=== PATIENT | female | born 1965 | race American Indian/Alaskan Native ===

== ENCOUNTER 2017-02-26 12:22 | Emergency (ER) | payer OTHER ==
[2017-02-26 13:13] LABS: Eosinophils % (Auto) 2.3 % (0.0-4.3); Hematocrit 34.6 % (30.3-42.9); Hemoglobin 10.6 gm/dl (10.1-14.3); Mean Corpuscular HGB Conc 31 % (30-34); Mean Corpuscular Volume 79 fl (79-97); Platelet Count 299 K/mm3 (140-440); Red Blood Count 4.39 M/mm3 (3.65-5.03); Red Cell Distribution Width 17.5 % (13.2-15.2); White Blood Count 9.7 K/mm3 (4.5-11.0)
[2017-02-26 13:19] LABS: Mean Corpuscular Hemoglobin 24 pg (28-32)
[2017-02-26 13:24] LABS: BUN/Creatinine Ratio 18; Blood Urea Nitrogen 11 mg/dL (7-17); Calcium 9.1 mg/dL (8.4-10.2); Carbon Dioxide 21 mmol/L (22-30); Chloride 99.8 mmol/L (98-107); Glucose 111 mg/dL (65-100); Sodium 136 mmol/L (137-145)
[2017-02-26 13:56] LABS: Anion Gap 21 mmol/L; Potassium 5.6 mmol/L (3.6-5.0)
[2017-02-26 14:45] LABS: Bacteria,Urine 1+ /HPF (Negative); Bilirubin,Urine NEG (Negative); Blood,Urine NEG (Negative); Ketones,Urine NEG (Negative); Leukocyte Esterase,Urine NEG (Negative); Mucus,Urine 3+ /HPF; Nitrite,Urine NEG (Negative)
[2017-02-26] MEDS ORDERED: LASIX PO ONE (15:13)
[2017-02-26] MEDS ORDERED: CATAPRES PO ONE (15:13)
--- NOTE | 2017-02-26 15:15 | Emergency Department Report ---
HPI - General Chief Complaint: Dyspnea/Respdistress Time Seen by Provider: 02/26/17 14:48 - HPI HPI: The patient's for 51-year-old female presents for evaluation of dyspnea. The patient has a history of CHF and hypertension. She reports constant mild in severity dyspnea for the past 2 days, exacerbated with lying flat or exertion, improved with rest and sitting forward. The patient denies fever, productive cough, chest pain, syncope, hemoptysis, unilateral leg swelling, oral contraceptive use, recent immobilization, history of DVT or PE, recent cancer. ED Past Medical Hx - Past Medical History Hx Hypertension: Yes Hx Congestive Heart Failure: Yes - Surgical History Additional Surgical History: C sections x 3, ear surgery - Social History Smoking Status: Never Smoker Substance Use Type: None - Medications Home Medications: Home Medications Medication Instructions Recorded Confirmed Last Taken Type Furosemide [Lasix] 20 mg PO QDAY #30 tablet 02/26/17 Unknown Rx Lisinopril [Zestril] 10 mg PO QDAY #30 tablet 02/26/17 Unknown Rx amLODIPine [Norvasc] 10 mg PO DAILY #30 tab 02/26/17 Unknown Rx ED Review of Systems ROS: Stated complaint: SOB Other details as noted in HPI Constitutional: denies: fever ENT: denies: throat or neck pain Respiratory: denies: cough reports shortness of breath Cardiovascular: denies: chest pain Endocrine: denies unexplained weight loss or gain Gastrointestinal: denies: abdominal pain, nausea Genitourinary: denies: dysuria Musculoskeletal: denies: leg swelling Skin: denies: rash Neurological: denies: headache Hematological/Lymphatic: denies: easy bleeding or easy bruising Psych: denies sadness or hopelessness Physical Exam - Physical Exam Vital Signs: Vital Signs 02/26/17 02/26/17 02/26/17 12:38 14:45 14:48 Temperature 98.8 F Pulse Rate 90 92 H Respiratory 20 22 22 Rate Blood Pressure 229/139 Blood Pressure 191/104 [Left] O2 Sat by Pulse 98 98 98 Oximetry Physical Exam: General: well-nourished, well-developed, no acute distress Head: Normocephalic, atraumatic Eyes: normal sclera ENT: Mucous membranes are pink and moist Neck: trachea midline, neck supple, No neck stiffness, no cervical adenopathy Respiratory: Breath sounds equal bilaterally, no wheezing, rales, or rhonchi Cardio: S1 and S2 present, no murmurs, rubs, gallops, capillary refill is brisk Abdomen: Normoactive bowel sounds, soft abdomen, no rigidity, no guarding or rebound tenderness Chest WALL/Back: No tenderness to palpation of the chest wall, no CVA tenderness with percussion Musc: 1+ pitting edema of bilateral lower legs Skin: No rash Neuro: no facial drooping, normal speech Psych: Normal affect ED Course Vital Signs 02/26/17 02/26/17 02/26/17 12:38 14:45 14:48 Temperature 98.8 F Pulse Rate 90 92 H Respiratory 20 22 22 Rate Blood Pressure 229/139 Blood Pressure 191/104 [Left] O2 Sat by Pulse 98 98 98 Oximetry ED Medical Decision Making - Lab Data Result diagrams: 02/26/17 12:49 02/26/17 12:49 - Medical Decision Making The patient was seen and examined by myself. The patient is placed on a groundwater monitoring technician and continuous pulse ox. On initial evaluation, the patient was found to be in no distress. EKG was negative for findings suggestive of acute cardiac infarct. The patient given a tablet of Lasix for txt of her chf and clonidine for txt of her elevated blood pressure. Labs and imaging are obtained. Chest x-ray exhibited cardiomegaly consistent with no history of CHF, and otherwise is negative for pneumothorax, focal consolidation, pleural effusion, or other emergent cardiopulmonary disease process. Lab results exhibited elevated BNP of 4000, and otherwise were non-concerning including levels of troponin, WBC, hemoglobin, hematocrit, renal function. The patient was reevaluated and reported that her symptoms were improved. The patient's found to remain with BP >230/130s. The patient is offered IV antihypertensives and she declines. She states that she would like to be discharged home. The patient is competent and able to make medical decisions. She is informed of risks of refusal of treatment versus benefits of continued treatment. She expressed understanding and is able to verbalize risk of refusal of further treatment and benefits of continued treatment. The patient signs out AGAINST MEDICAL ADVICE. Critical care attestation.: If time is entered above; I have spent that time in minutes in the direct care of this critically ill patient, excluding procedure time. ED Disposition Clinical Impression: Hypertensive urgency Chronic heart failure Qualifiers: Heart failure type: systolic Qualified Code(s): I50.22 - Chronic systolic ( congestive) heart failure Disposition: TO HOME OR SELFCARE Is pt being admited?: No Does the pt Need Aspirin: No Condition: Stable Instructions: Heart Failure (ED), Chronic Hypertension (ED), Hypertension (ED) Prescriptions: amLODIPine [Norvasc] 10 mg PO DAILY #30 tab Furosemide [Lasix] 20 mg PO QDAY #30 tablet Lisinopril [Zestril] 10 mg PO QDAY #30 tablet Referrals: PRIMARY CARE, [Primary Care Provider] - 3-5 Days Forms: AMA Form Time of Disposition: 15:14
--- NOTE | 2017-02-26 15:54 | XRay Report ---
FINAL REPORT PROCEDURE: Portable AP chest x-ray TECHNIQUE: Chest radiograph anteroposterior view. CPT 68697 HISTORY: chest pain COMPARISON: No prior studies are available for comparison. FINDINGS: The heart is diffusely enlarged. The pulmonary vasculature is not distended. No pulmonary edema or pleural effusions are seen. No infiltrates or masses are identified. Left diaphragm is suboptimally visualized due to artifact from overlapping cardiac leads. No acute bony abnormalities are identified. IMPRESSION: Cardiomegaly. No other abnormalities are seen..
[2017-02-26 16:52] VITALS: BP 213/127
== END 2017-02-26 17:20 | disposition home or self-care (01) ==
LOC: ED 12:22
DX: I16.0 Hypertensive urgency (principal); I50.22 Chronic systolic (congestive) heart failure
CPT/HCPCS: 36415; 71010; 71020; 80048; 81001; 81025; 83880; 84484; 85025; 93005; 93010

== ENCOUNTER 2017-05-04 08:07 | Day surgery (SDC) | payer OTHER ==
[2017-05-04] MEDS ORDERED: ECOTRIN PO ONE (08:25)
[2017-05-04] MEDS ORDERED: NACL 0.9% 500 ML 500 ML IV SCH (09:00)
[2017-05-04] MEDS ORDERED: HEPARIN/NS 5000 UNIT/500ML(CATH LAB) 1,000 ML IR ONE (09:51)
[2017-05-04] MEDS ORDERED: XYLOCAINE 2% INFILTRATI ONE (09:51)
[2017-05-04] MEDS ORDERED: VERSED ONE (09:58)
[2017-05-04] MEDS ORDERED: HEPARIN 10,000 UNITS/10 ML ONE (09:58)
[2017-05-04] MEDS ORDERED: CALAN ONE (09:59)
[2017-05-04] MEDS ORDERED: NITROGLYCERIN SYRINGE 3 ML ONE (09:59)
[2017-05-04] MEDS: SUBLIMAZE ONE ×2 (10:17→10:20)
[2017-05-04] MEDS ORDERED: TYLENOL PO ONE (11:21)
--- NOTE | 2017-05-04 12:28 | Cardiac Catherization Report ---
LEFT HEART CATHETERIZATION ORDERING PHYSICIAN: ____. CLINICAL INFORMATION: This is a 51-year-old female with obesity, hypertension, who has an abnormal stress test with moderate sized reversibility anterior and anterior apical perfusion defect with mild LV dysfunction. The patient is here for left heart cath. Moderate sedation was used under supervised 100 mcg of fentanyl and 1 mg of Versed. TOTAL SEDATION TIME: 20 minutes. START TIME: 10:16 a.m. END TIME: 10:36 a.m. DESCRIPTION OF PROCEDURE: Left heart cath performed via the right radial artery, sterile technique, local anesthesia, normal Higinio's test, 6-Sing[place]an radial sheath inserted. PROCEDURE FINDINGS: Left system engaged with JL3.5. Left main is large and patent, bifurcates a large LAD, is a wrap-around LAD, small diagonal and patent. Ramus is a large caliber vessel that is patent. OM1 is a large caliber vessel with upper and lower branch patent. OM2 is a medium caliber vessel that is patent. Circumflex and AV groove is a medium caliber vessel that is patent. RCA engaged with JR4 catheter is a large dominant vessel with moderate tortuosity, patent from proximally to distally. PDA and PLV are medium caliber vessels that are patent. LV gram done in THAI and MIRANDA view shows normal LV function, LVEDP o f 30 mmHg, LV is 182/30, aortic is 175/100. No gradient across the aortic valve on pullback. 5-Sing[place]an catheter inserted taken over the guidewire. 6-[place]an radial sheath was discontinued. Radial dressing applied. No hematoma, no bleeding. SUMMARY: 1. Normal coronaries, hypertensive vessels, moderate tortuous vessel, large epicardial vessels, right dominant. 2. Normal LV function with mildly elevated left end-diastolic pressure. 3. Hypertension, diastolic dysfunction. Continue risk factor modifications and BP control, discussed in detail with the patient. JOB# [id number] RYAN/RICHI
--- NOTE | 2017-05-04 13:41 | Short Stay Summary ---
Short Stay Documentation Date of service: 05/04/17 - History H&P: obtained from office - Allergies and Medications Current Medications: Allergies Penicillins Allergy (Verified 02/26/17 12:38) Anaphylaxis Home Medications Medication Instructions Recorded Confirmed Last Taken Type Furosemide [Lasix] 20 mg PO QDAY #30 tablet 02/26/17 05/04/17 05/03/17 Rx 20mg amLODIPine [Norvasc] 10 mg PO DAILY #30 tab 02/26/17 05/04/17 05/04/17 06:00 Rx Hydralazine HCl 50 mg PO BID 05/04/17 05/04/17 05/04/17 06:00 History 50mg Active Medications Sodium Chloride (Nacl 0.9% 500 Ml) 500 mls @ 50 mls/hr IV DIRECT NADJA Stop: 05/04/17 18:59 Last Admin: 05/04/17 09:30 Dose: 50 mls/hr - Brief post op/procedure progress note Date of procedure: 05/04/17 Pre-op diagnosis: abnormal stress test Post-op diagnosis: same Procedure: [facility] - see cath report Anesthesia: local Estimated blood loss: none Condition: stable - Disposition Condition at discharge: Stable Disposition: DC-01 TO HOME OR SELFCARE - Discharge Diagnoses (1) Abnormal stress test Status: Chronic (2) Normal coronary arteries Status: Chronic Short Stay Discharge Plan Activity: advance as tolerated Diet: regular Wound: open to air, keep clean and dry, per your surgeon's advice Follow up with: ISIS PERRY MD [Primary Care Provider] - 7 Days Forms: CardCath PCI D/C Instructions
[2017-05-04 14:36] VITALS: BP 144/93
== END 2017-05-04 15:04 | disposition home or self-care (01) ==
LOC: CATHLABREC 08:07
PROVIDERS: ATTEND Internal Medicine
DX: I11.0 Hypertensive heart disease with heart failure (principal); I50.9 Heart failure, unspecified; E66.01 Morbid (severe) obesity due to excess calories; Z68.43 Body mass index [BMI] 50.0-59.9, adult; Z88.0 Allergy status to penicillin; Z79.899 Other long term (current) drug therapy
CPT/HCPCS: 82962; 93005; 93010; 93458; 99156; C1894; J1644; J2250; J3010; J7040; Q9967

== ENCOUNTER → 2017-07-13 | Outpatient (CLI) | payer OTHER | LOC: SLR 11:00 | PROVIDERS: ATTEND Otolaryngology | DX: G47.30 Sleep apnea, unspecified (principal) | CPT/HCPCS: G0399 ==

== ENCOUNTER → 2020-11-26 | Outpatient (CLI) | payer OTHER | END | disposition home or self-care (01) | LOC: SLR 11:00 | PROVIDERS: ATTEND Internal Medicine Cardiovascular Disease | DX: G47.30 Sleep apnea, unspecified (principal) | CPT/HCPCS: 95810 ==

== ENCOUNTER → 2021-01-15 | Outpatient (CLI) | payer OTHER | END | disposition home or self-care (01) | LOC: SLR 11:00 | PROVIDERS: ATTEND Internal Medicine Cardiovascular Disease | DX: G47.33 Obstructive sleep apnea (adult) (pediatric) (principal) | CPT/HCPCS: 95811 ==

== ENCOUNTER 2021-05-27 09:53 | Outpatient (CLI) | payer OTHER ==
[2021-05-27 10:15] LABS: Hematocrit 37.6 % (30.3-42.9); Hemoglobin 11.6 gm/dl (10.1-14.3); Mean Corpuscular HGB Conc 31 % (30-34); Mean Corpuscular Volume 81 fl (79-97); Platelet Count 317 K/mm3 (140-440); Red Blood Count 4.67 M/mm3 (3.65-5.03); Red Cell Distribution Width 17.8 % (13.2-15.2)
[2021-05-27 10:40] LABS: Alanine Aminotransferase 10 units/L (7-56); BUN/Creatinine Ratio 19; Blood Urea Nitrogen 15 mg/dL (7-17); Calcium 9.8 mg/dL (8.4-10.2); HDL Cholesterol 58 mg/dL (40-59); Hemolysis Index 3; LDL Cholesterol,Direct 133 mg/dL (50-130)
--- NOTE | 2021-05-27 11:08 | XRay Report ---
CHEST 2 VIEWS INDICATION / CLINICAL INFORMATION: G47.33 I50.9 I10. COMPARISON: 02/26/2017 FINDINGS: SUPPORT DEVICES: None. HEART / MEDIASTINUM: No significant abnormality. LUNGS / PLEURA: No significant pulmonary or pleural abnormality. No pneumothorax. ADDITIONAL FINDINGS: No significant additional findings. IMPRESSION: 1. No acute findings. Signer Name: Jonnie Arnold MD Signed: 05/27/2021 11:04 AM Workstation Name: [employer]
== END 2021-05-27 09:54 | disposition home or self-care (01) ==
LOC: XRAY 09:53
PROVIDERS: ATTEND Internal Medicine
DX: I11.0 Hypertensive heart disease with heart failure (principal); G47.33 Obstructive sleep apnea (adult) (pediatric); I50.9 Heart failure, unspecified; Z68.43 Body mass index [BMI] 50.0-59.9, adult
CPT/HCPCS: 36415; 71046; 80053; 80061; 84436; 84443; 85027